=== PATIENT | female | born 1955 ===

== ENCOUNTER 2021-02-20 06:40 | Emergency (ER) | payer BC, SELFPAY ==
[~2021-02-20] VITALS: Ht 162.6 cm; Wt 72.6 kg
[2021-02-20 06:45] VITALS: BP_SYST 147
--- NOTE | 2021-02-20 07:03 | NUR ---
Patient to ER bed 8 to gown for evaluation. Side rails up. Report given to day shift.
--- NOTE | 2021-02-20 07:07 | NUR ---
DR PFEIFFER IN ROOM FOR EXAM
--- NOTE | 2021-02-20 07:18 | NUR ---
CXR AT BEDSIDE
--- NOTE | 2021-02-20 07:45 | NUR ---
COVID PCR SWAB PERFORMED AT BEDSIDE AND SENT TO LAB
[2021-02-20 07:47] VITALS: BP_SYST 147
--- NOTE | 2021-02-20 07:52 | NUR ---
Patient given written and verbal discharge instructions and verbalizes understanding. ER MD discussed with patient the results and treatment provided. Patient in stable condition. ID arm band removed. Patient educated on pain management and to follow up with PMD. Opportunity for questions provided and answered. Medication side effect fact sheet provided.
== END 2021-02-20 07:47 | disposition home or self-care (01) ==
LOC: SED 06:40
DX: R06.02 Shortness of breath (principal); Z77.098 Contact with and (suspected) exposure to other hazardous, chiefly nonmedicinal, chemicals; Z20.822 Contact with and (suspected) exposure to COVID-19
CPT/HCPCS: 71045; 93005; 99285; U0003; C9803